=== PATIENT | male | born 1960 ===

== ENCOUNTER → 2023-04-08 15:39 | Outpatient (CLI) | payer OTHER, SELFPAY ==
--- NOTE | ~2023-04-08 | MR_ITS ---
EXAMINATION: MR knee LT wo con DATE: 04/08/2023 16:11 INDICATION: Left knee pain post fall while playing. Global 4 weeks prior TECHNIQUE: Magnetic resonance imaging (MRI) of the left knee was performed without intravenous contra st. Sequences included coronal PD-weighted FSE, coronal PD-weighted FS FSE, sagittal T2-weighted FSE , sagittal PD-weighted FS FSE and axial PD weighted fat saturated FSE. COMPARISON: None. FINDINGS: Medial compartment: Medial meniscus is normal. Articular cartilage is normal. Lateral compartment: Lateral meniscus is normal. Articular cartilage is normal. Patellofemoral compartment: Articular cartilage is normal. Ligaments and tendons: Anterior and posterior cruciate ligaments are normal. The fibular collateral ligament complex is norm al. Thickening, increased intrasubstance signal and minimal surrounding edema at the proximal medial collateral ligament consistent with likely subacute partial tear (moderate grade sprain). The extenso r mechanism is normal. The visualized medial and lateral hamstring tendons as well as the iliotibial band are normal. Fluid: Physiologic amount of fluid in the joint space. No loose osteochondral bodies identified. Osseous/other: There is marrow edema along the lateral margin of the central weightbearing lateral femoral condyle s urrounding a small curvilinear subarticular low signal intensity fracture line likely resulting from a valgus injury impaction fracture occurring in conjunction with the medial collateral ligament tear. Otherwise normal marrow signal with no pathologic marrow replacing process. IMPRESSION: 1. Likely subacute partial tear (moderate grade sprain) of the proximal medial collateral ligament. 2. Likely associated small impaction fracture along the lateral rim of the central weightbearing late ral femoral condyle. Reviewed, dictated and finalized at location L. IMPRESSION: 1. Likely subacute partial tear (moderate grade sprain) of the proximal medial collateral ligament. 2. Likely associated small impaction fracture along the lateral rim of the cent ral weightbearing lateral femoral condyle.
== END ==
PROVIDERS: PCP Physician Assistant; Visit Provider Physician Assistant
DX: M25.562 Pain in left knee (principal); G89.29 Other chronic pain; W19.XXXA Unspecified fall, initial encounter
CPT/HCPCS: 73721